=== PATIENT | female | born 1980 | race African-American/Black ===

== ENCOUNTER 2022-12-26 06:10 | Inpatient (IN) ==
[2022-12-26] MEDS ORDERED: BETADINE SOLN ONE (06:47)
[2022-12-26] MEDS ORDERED: ANCEF VIAL 1 GRAM ONE (06:51)
[2022-12-26] MEDS ORDERED: D5 1/2 NS 1,000 ML 1,000 ML IV ONE ×2 (06:55→09:46)
[2022-12-26] MEDS ORDERED: NS 100 ML IV 100 ML ONE (06:55)
[2022-12-26 07:18] VITALS: BMI 37.2
[2022-12-26] MEDS ORDERED: FENTANYL VIAL INJ 250 mcg ONE (07:22)
[2022-12-26] MEDS ORDERED: K-RIDER 10 MEQ/NS 100 ML 20 MEQ/200 ML BAG IV ONE (07:22)
[2022-12-26] MEDS ORDERED: VERSED ONE (07:22)
[2022-12-26] MEDS ORDERED: SUPRANE ONE (07:23)
[2022-12-26] MEDS ORDERED: DIPRIVAN VIAL 20 ML ONE (07:23)
[2022-12-26] MEDS ORDERED: BRIDION ONE (07:23)
[2022-12-26] MEDS ORDERED: ZOFRAN INJ 4 MG VIAL ONE (07:24)
[2022-12-26] MEDS ORDERED: ZEMURON 100 MG VIAL ONE (07:24)
[2022-12-26] MEDS ORDERED: QUELICIN (OR ANECTINE) ONE (07:24)
[2022-12-26] MEDS ORDERED: ProvayBLUE 0.5% ONE (08:26)
[2022-12-26] MEDS ORDERED: DILAUDID INJ ONE (09:06)
[2022-12-26] MEDS ORDERED: D5 1/2 NS 1,000 ML 1,000 ML IV SCH (09:41)
[2022-12-26] MEDS ORDERED: ANCEF VIAL 1 GRAM IVP ONE (09:41)
[2022-12-26] MEDS ORDERED: K-RIDER 10 MEQ/NS 100 ML 10 MEQ/100 ML BAG IV ONE (09:44)
[2022-12-26] MEDS ORDERED: DILAUDID INJ IVP PRN (09:55)
[2022-12-26] MEDS ORDERED: ZOFRAN INJ 4 MG VIAL IVP PRN (09:55)
[2022-12-26] MEDS ORDERED: REGLAN INJ 10 MG VIAL IVP PRN (09:55)
[2022-12-26] MEDS ORDERED: BENADRYL INJ 50 MG VIAL IVP PRN ×2 (09:55→10:25)
[2022-12-26] MEDS ORDERED: BARHEMSYS INJ IVP PRN (09:55)
[2022-12-26] MEDS: D5 1/2 NS 1,000 ML 1,000 ML IV SCH ×2 (10:15→18:11)
[2022-12-26] MEDS: MORPHINE SULFATE PCA 30 MG IVP PRN ×2 (11:38→17:15)
[2022-12-26] MEDS ORDERED: MAGNESIUM SULFATE 1 GRAM/100 mL PREMIX 1 G/100 ML BAG IV PRN ×2 (14:02→14:04)
[2022-12-26] MEDS ORDERED: POTASSIUM CHL 40 MEQ/NS 0.45% 500 ML IV PRN (14:04)
[2022-12-26] MEDS ORDERED: POTASSIUM CHL 60 MEQ/NS 0.45% 500 ML IV PRN (14:04)
[2022-12-26] MEDS ORDERED: K-RIDER 10 MEQ/NS 100 ML 10 MEQ/100 ML BAG IV PRN (14:04)
[2022-12-26] MEDS ORDERED: POTASSIUM CHLORIDE LIQ 20 MEQ UDC PO PRN (14:04)
[2022-12-26] MEDS ORDERED: MICRO K EXTEN CAP 10 MEQ PO PRN ×2 (14:04→23:00)
[2022-12-26] MEDS ORDERED: KLOR-CON PO PRN (14:04)
[2022-12-26] MEDS ORDERED: K-DUR TAB 20 MEQ PO PRN (14:04)
[2022-12-26] MEDS: ZOFRAN INJ 4 MG VIAL IVP PRN ×2 (18:11→23:53)
[2022-12-26] MEDS: TORADOL 30 MG VIAL IVP PRN (23:52)
[2022-12-27] MEDS: D5 1/2 NS 1,000 ML 1,000 ML IV SCH (02:12)
[2022-12-27 05:11] LABS: BASOPHILS # (AUTO) 0.1 X10^3/uL (0.0-0.1); BASOPHILS % (AUTO) 0.4 % (0.2-1.0); HEMATOCRIT 33.6 % (36.0-47.0); HEMOGLOBIN 11.2 g/dL (12.0-16.0); LYMPHOCYTES # (AUTO) 1.3 X10^3/uL (1.3-2.9); LYMPHOCYTES % (AUTO) 8.3 % (21.0-51.0); MEAN CORPUSCULAR HEMOGLOBIN 26.1 pg (27.0-34.0); MEAN CORPUSCULAR HGB CONC 33.4 g/dL (33.0-35.0); MEAN PLATELET VOLUME 8.4 fL (7.4-11.0); MONOCYTES # (AUTO) 1.1 x10^3/uL (0.3-0.8); NEUTROPHILS # (AUTO) 12.8 x10^3/uL (2.2-4.8); NEUTROPHILS % (AUTO) 84.3 % (42.0-75.0); RED CELL DISTRIBUTION WIDTH 16.7 % (11.6-16.5); WHITE BLOOD COUNT 15.2 X10^3/uL (3.6-10.0)
[2022-12-27 05:17] LABS: BLOOD UREA NITROGEN 6 mg/dL (7-18); CARBON DIOXIDE 29.4 mmol/L (21-32); CHLORIDE 99 mmol/L (98-107); COR NA(FOR HYPERGLY) 139 mmol/L (136-145); CREATININE 0.77 mg/dL (0.55-1.02); SODIUM 138 mmol/L (136-145); eGFR NON BLACK RACES > 60 (>60)
[2022-12-27] MEDS: TORADOL 30 MG VIAL IVP PRN (07:38)
[2022-12-27] MEDS: ESTRACE PO SCH (08:50)
[2022-12-27] MEDS: COZAAR PO SCH (08:50)
[2022-12-27] MEDS: COLACE CAP 100 MG PO SCH ×2 (08:51→20:06)
[2022-12-27] MEDS: ZETIA TAB 10 MG PO SCH (08:51)
[2022-12-27] MEDS ORDERED: BACTROBAN TOPICAL OINT ONE (11:30)
[2022-12-27] MEDS: PERCOCET TAB 5/325 MG PO PRN ×3 (11:31→20:06)
[2022-12-27] MEDS ORDERED: BENADRYL CAP/TAB 25 MG PO ONE (13:46)
[2022-12-27] MEDS ORDERED: BENADRYL CAP 50 MG PO ONE (13:50)
[2022-12-27] MEDS: BACTROBAN TOPICAL OINT TOP SCH ×3 (13:51→22:28)
[2022-12-27] MEDS: MOTRIN TAB 800 MG PO PRN ×2 (14:25→22:46)
[2022-12-27] MEDS ORDERED: ONDANSETRON ODT PO PRN (22:18)
[2022-12-27] MEDS ORDERED: ZOFRAN TAB 4 MG PO PRN (22:34)
[2022-12-28] MEDS: PERCOCET TAB 5/325 MG PO PRN (05:47)
[2022-12-28] MEDS: BACTROBAN TOPICAL OINT TOP SCH (05:48)
[2022-12-28] MEDS: COZAAR PO SCH (08:38)
[2022-12-28] MEDS: ESTRACE PO SCH (08:38)
[2022-12-28] MEDS: ZETIA TAB 10 MG PO SCH (08:38)
[2022-12-28] MEDS: COLACE CAP 100 MG PO SCH (08:38)
[2022-12-28] MEDS: MOTRIN TAB 800 MG PO PRN (08:38)
[2022-12-28 09:54] VITALS: BP 162/87
== END 2022-12-28 10:20 | disposition home or self-care (01) | DRG 743 ==
LOC: MED/SURG 06:10
PROVIDERS: ADMIT Specialist; ATTEND Specialist
DX: E87.6 Hypokalemia; N92.5 Other specified irregular menstruation; D25.2 Subserosal leiomyoma of uterus; I10 Essential (primary) hypertension

== ENCOUNTER 2024-12-02 16:25 | Observation (INO) ==
[2024-12-02 16:55] LABS: BASOPHILS # (AUTO) 0.1 X10^3/uL (0.0-0.1); BASOPHILS % (AUTO) 1.2 % (0.2-1.0); EOSINOPHILS # (AUTO) 0.2 x10^3/uL (0.0-0.2); EOSINOPHILS % (AUTO) 1.7 % (0.9-2.9); HEMATOCRIT 38.8 % (36.0-47.0); HEMOGLOBIN 13.4 g/dL (12.0-16.0); LYMPHOCYTES # (AUTO) 2.8 X10^3/uL (1.3-2.9); LYMPHOCYTES % (AUTO) 30.4 % (21.0-51.0); MEAN CORPUSCULAR HGB CONC 34.4 g/dL (33.0-35.0); MEAN CORPUSCULAR VOLUME 87.3 fL (80.0-100.0); MEAN PLATELET VOLUME 8.1 fL (7.4-11.0); MONOCYTES # (AUTO) 0.6 x10^3/uL (0.3-0.8); MONOCYTES % (AUTO) 6.6 % (0.0-13.0); NEUTROPHILS # (AUTO) 5.5 x10^3/uL (2.2-4.8); NEUTROPHILS % (AUTO) 60.1 % (42.0-75.0); PLATELET COUNT 422 X10^3/uL (150.0-450.0); RED BLOOD COUNT 4.45 X10^6/uL (3.5-5.4); RED CELL DISTRIBUTION WIDTH 13.2 % (11.6-16.5); WHITE BLOOD COUNT 9.2 X10^3/uL (3.6-10.0)
--- NOTE | 2024-12-02 16:56 | EKG ---
Test Reason : er1 Blood Pressure : */* mmHG Vent. Rate : 113 BPM Atrial Rate : 113 BPM P-R Int : 126 ms QRS Dur : 78 ms QT Int : 298 ms P-R-T Axes : 49 13 10 degrees QTc Int : 408 ms Sinus tachycardia Possible Left atrial enlargement Minimal voltage criteria for LVH, may be normal variant ( R in aVL ) Borderline ECG When compared with ECG of 24-DEC-2022 14:50, No significant change was found Confirmed by Pro Kerns MD ([id number]) on 12/02/2024 6:23:29 PM Referred By: Confirmed By: Pro Kerns MD
[2024-12-02 17:06] LABS: ALANINE AMINOTRANSFERASE 17 Units/L (12-78); ALBUMIN 3.3 g/dL (3.4-5.0); ALKALINE PHOSPHATASE 75 Units/L (46-116); ASPARTATE AMINO TRANSFERASE 12 Units/L (15-37); BLOOD UREA NITROGEN 14 mg/dL (7-18); CALCIUM 8.7 mg/dL (8.5-10.1); CARBON DIOXIDE 27.3 mmol/L (21-32); CHLORIDE 104 mmol/L (98-107); COR CA(FOR HYPOALB) 9.3 mg/dL (8.5-10.1); CREATININE 1.13 mg/dL (0.55-1.02); GLUCOSE 106 mg/dL (65-99); POTASSIUM 4.2 mmol/L (3.5-5.1); SODIUM 139 mmol/L (136-145); TOTAL PROTEIN 7.4 g/dL (6.4-8.2); eGFR NON BLACK RACES 56 (>60)
[2024-12-02] MEDS ORDERED: OMNIPAQUE 350 mg/mL 100 mL BTL 100 ML ONE (17:08)
[2024-12-02 17:18] LABS: BILIRUBIN,URINE NEGATIVE (NEGATIVE); BLOOD/HEMOGLOBIN,URINE NEGATIVE (NEGATIVE); GLUCOSE, URINE NEGATIVE (NEGATIVE); KETONES,URINE NEGATIVE (NEGATIVE); LEUKOCYTE ESTERASE ,URINE NEGATIVE (NEGATIVE); NITRITES,URINE NEGATIVE (NEGATIVE); PROTEIN,URINE NEGATIVE (NEGATIVE); UROBILINOGEN,URINE NORMAL (NORMAL)
[2024-12-02 17:20] LABS: APPEARANCE,URINE CLEAR (CLEAR); COLOR,URINE STRAW (YELLOW)
--- NOTE | 2024-12-02 17:36 | DR.SOBA ---
HPI Time Seen Time Seen by Provider: 12/02/24 17:34 Primary Care Physician Primary Care Physician: griselda HPI Comment HPI Comment: Patient with worsening shortness of breath and dyspnea on exertion over the last 2 weeks. Patient states she is feeling some pressure on her chest. Patient states she has tested herself for COVID and flu and was negati ve. Patient states when she was showering she was short of breath so she sat on the ground and felt like she had a small period where there she passed out or fell asleep. She did not fall or injure herself. Complaints Chief Complaint:: for 2 weeks increasing shortness of breath tiff with exertion. has pressure to the chest like something is on it. self testing of viral illness with swabs have been negative. she was noted to be experiencing severe shortness of breath when reporting for work. she had marked difficulty when walking and trying to talk. describes what she described as a syncope episode while in the shower where she had to getup from the floor. COVID-19 Coronavirus risk:travel/contact w/high risk person: No Has patient experienced Coronavirus symptoms: Yes Coronavirus symptoms experienced: Coughing and Shortness of Breath Source History Provided: Patient Mode of Arrival Mode of Arrival: Ambulatory Timing Onset of Chief Complaint: 11/18/24 PMH PMH Past Medical History: Yes Past Medical History: Dyslipidemia and Hypertension Past Surgical History: Yes Surgical History: and Hysterectomy Family History History of Family Medical Conditions: Yes Family Medical History: Diabetes Mellitus and Hypertension Family Medical History Comment: stroke Social History Alcohol Use: None Do you use any recreational Drugs:: No Lives With: Family Lives Where: Home Travel Risk Coronavirus risk:travel/contact w/high risk person: No Has patient experienced Coronavirus symptoms: Yes Coronavirus symptoms experienced: Coughing and Shortness of Breath Infectious screening In the last 2 months have you had wt loss of >10#?: NO Have you had fever, night sweats or hemotysis?: No Have you traveled outside the country in the last 6 months?: No Isolation: Standard ROS Review of Systems Constitutional: No Symptoms Reported Eyes: No Symptoms Reported ENTM: No Symptoms Reported Respiratoy: Short of Breath; negative Orthopnea Cardiovascular: See HPI, Chest Pain, Syncope and Other (Dyspnea on exertion) Gastrointestinal/Abdominal: No Symptoms Reported Genitourinary: No Symptoms Reported Neurological: No Symptoms Reported Musculoskeletal: No Symptoms Reported Integumentary: No Symptoms Reported Hematologic/Lymphatic: No Symptoms Reported Endocrine: No Symptoms Reported Psychiatric: No Symptoms Reported All Other Systems: Reviewed and Negative PE Vital Signs Vitals: Vital Signs Temperature 98.1 F Pulse Rate 95 Pulse Rate 95 Pulse Rate 95 Pulse Rate 94 Pulse Rate 98 Pulse Rate 99 Pulse Rate 102 Pulse Rate 99 Pulse Rate 102 Pulse Rate 99 Pulse Rate 100 Pulse Rate 105 Pulse Rate 100 Pulse Rate 109 Pulse Rate 96 Pulse Rate 97 Pulse Rate 100 Pulse Rate 109 Pulse Rate 113 Pulse Rate 106 Pulse Rate 144 Respiratory Rate 17 Respiratory Rate 25 Respiratory Rate 18 Respiratory Rate 19 Respiratory Rate 17 Respiratory Rate 22 Respiratory Rate 28 Respiratory Rate 31 Respiratory Rate 25 Respiratory Rate 24 Respiratory Rate 29 Respiratory Rate 29 Respiratory Rate 29 Respiratory Rate 16 Respiratory Rate 25 Respiratory Rate 22 Respiratory Rate 18 Respiratory Rate 29 Respiratory Rate 26 Respiratory Rate 40 Blood Pressure 140/86 Blood Pressure 129/79 Blood Pressure 133/82 Blood Pressure 138/86 Blood Pressure 138/80 Blood Pressure 138/80 Blood Pressure 140/91 Blood Pressure 140/91 Blood Pressure 134/89 Blood Pressure 158/77 Blood Pressure 136/82 Blood Pressure 121/79 Blood Pressure 142/82 O2 Sat by Pulse Oximetry 100 O2 Sat by Pulse Oximetry 100 O2 Sat by Pulse Oximetry 100 O2 Sat by Pulse Oximetry 100 O2 Sat by Pulse Oximetry 100 O2 Sat by Pulse Oximetry 100 O2 Sat by Pulse Oximetry 99 O2 Sat by Pulse Oximetry 100 O2 Sat by Pulse Oximetry 100 O2 Sat by Pulse Oximetry 100 O2 Sat by Pulse Oximetry 100 O2 Sat by Pulse Oximetry 99 O2 Sat by Pulse Oximetry 100 O2 Sat by Pulse Oximetry 98 O2 Sat by Pulse Oximetry 98 O2 Sat by Pulse Oximetry 100 O2 Sat by Pulse Oximetry 100 O2 Sat by Pulse Oximetry 100 O2 Sat by Pulse Oximetry 97 O2 Sat by Pulse Oximetry 100 General Limitations: No Limitations General Appearance: Alert and In No Apparent Distress Head Head Exam: Normal Inspection Eyes Eye exam: Normal Appearance ENT ENT Exam: Normal Exam Neck Neck Exam: Normal Inspection Chest Chest Inspection: Normal Inspection Respiratory Respiratory Exam: Normal Lung Sounds Bilat Respiratory Exam: Bilateral: Clear to Auscultation Cardiovascular Cardiovascular Exam: Regular Rate and Normal Rhythm Abdominal Exam Abdominal Exam: Normal Inspection, Normal Bowel Sounds and Soft Extremities Extremities Exam: Normal Inspection Back Back Exam: Normal Inspection Neurologic Neurological Exam: Alert and Oriented X3 Psychiatric Psychiatric Exam: Normal Affect and Normal Mood Skin Skin Exam: Warm, Dry, Intact and Normal Color Other Exam Other Exam: Patient oxygen saturation dropped to high 70s during ambulation. COURSE Treatment Treatment: Discussed results with patient. Suspect pulmonary hypertension is part of the reason for her symptoms. Consultation Called: 20:56 Consultation Comments: Discussed case with Dr. Broderick. He is agreeable to admi ssion for echo and further workup. [facility] Labs Reviewed 12/02/24 16:40 12/02/24 16:40 Laboratory: WBC 9.2 X10^3/uL (3.6-10.0) 12/02/24 16:40 RBC 4.45 X10^6/uL (3.5-5.4) 12/02/24 16:40 Hgb 13.4 g/dL (12.0-16.0) 12/02/24 16:40 Hct 38.8 % (36.0-47.0) 12/02/24 16:40 MCV 87.3 fL (80.0-100.0) 12/02/24 16:40 MCH 30.0 pg (27.0-34.0) 12/02/24 16:40 MCHC 34.4 g/dL (33.0-35.0) 12/02/24 16:40 RDW 13.2 % (11.6-16.5) 12/02/24 16:40 Plt Count 422 X10^3/uL (150.0-450.0) 12/02/24 16:40 MPV 8.1 fL (7.4-11.0) 12/02/24 16:40 Neut % (Auto) 60.1 % (42.0-75.0) 12/02/24 16:40 Lymph % (Auto) 30.4 % (21.0-51.0) 12/02/24 16:40 [place] % (Auto) 6.6 % (0.0-13.0) 12/02/24 16:40 Eos % (Auto) 1.7 % (0.9-2.9) 12/02/24 16:40 Baso % (Auto) 1.2 % (0.2-1.0) H 12/02/24 16:40 Neut # (Auto) 5.5 x10^3/uL (2.2-4.8) H 12/02/24 16:40 Lymph # (Auto) 2.8 X10^3/uL (1.3-2.9) 12/02/24 16:40 [place] # (Auto) 0.6 x10^3/uL (0.3-0.8) 12/02/24 16:40 Eos # (Auto) 0.2 x10^3/uL (0.0-0.2) 12/02/24 16:40 Baso # (Auto) 0.1 X10^3/uL (0.0-0.1) 12/02/24 16:40 Absolute Nucleated RBC 0.1 /100WBC 12/02/24 16:40 D-Dimer 0.27 ug/ml (0.0-0.57) 12/02/24 16:40 Sodium 139 mmol/L (136-145) 12/02/24 16:40 Corrected Sodium TNP 12/02/24 16:40 Potassium 4.2 mmol/L (3.5-5.1) 12/02/24 16:40 Chloride 104 mmol/L (98-107) 12/02/24 16:40 Carbon Dioxide 27.3 mmol/L (21-32) 12/02/24 16:40 BUN 14 mg/dL (7-18) 12/02/24 16:40 Creatinine 1.13 mg/dL (0.55-1.02) H 12/02/24 16:40 Est GFR (MDRD) Af Amer > 60 (>60) 12/02/24 16:40 Est GFR (MDRD) Non-Af 56 (>60) L 12/02/24 16:40 Glucose 106 mg/dL (65-99) H 12/02/24 16:40 Calcium 8.7 mg/dL (8.5-10.1) 12/02/24 16:40 Corrected Calcium 9.3 mg/dL (8.5-10.1) 12/02/24 16:40 Total Bilirubin 0.30 mg/dL (0.2-1.0) 12/02/24 16:40 AST 12 Units/L (15-37) L 12/02/24 16:40 ALT 17 Units/L (12-78) 12/02/24 16:40 Alkaline Phosphatase 75 Units/L (46-116) 12/02/24 16:40 Troponin I High Sens 21.8 ng/L (4.0-60.0) 12/02/24 19:51 B-Natriuretic Peptide 9.5 pg/mL (0-79) 12/02/24 16:40 Total Protein 7.4 g/dL (6.4-8.2) 12/02/24 16:40 Albumin 3.3 g/dL (3.4-5.0) L 12/02/24 16:40 Globulin 4.1 g/dL (2.5-4.5) 12/02/24 16:40 Albumin/Globulin Ratio 0.8 Ratio (1.1-2.1) L 12/02/24 16:40 TSH 3rd Generation 1.649 uIU/mL (0.358-3.74) 12/02/24 16:40 Specimen Type Clean catch urine 12/02/24 17:07 Urine Color Straw (YELLOW) 12/02/24 17:07 Urine Appearance Clear (CLEAR) 12/02/24 17:07 Urine pH 7.0 (5.0 - 8.0) 12/02/24 17:07 Ur Specific [place] 1.010 (1.000-1.030) 12/02/24 17:07 Urine Protein Negative (NEGATIVE) 12/02/24 17:07 Urine Glucose (UA) Negative (NEGATIVE) 12/02/24 17:07 Urine Ketones Negative (NEGATIVE) 12/02/24 17:07 Urine Blood Negative (NEGATIVE) 12/02/24 17:07 Urine Nitrite Negative (NEGATIVE) 12/02/24 17:07 Urine Bilirubin Negative (NEGATIVE) 12/02/24 17:07 Urine Urobilinogen Normal (NORMAL) 12/02/24 17:07 Ur Leukocyte Esterase Negative (NEGATIVE) 12/02/24 17:07 Opioid Opioid Risk Tool Age (Izaiah box if 16-45): Yes History of Preadolescent Sexual Abuse: No Total: 1 Total Score Risk Category: Low Risk Copyright: Rayo GARCIA predicting aberrant behaviors Discharge Plan Diagnosis Discharge Problem: RUSSELL (dyspnea on exertion), Chest pain, Syncope, Pulmonary hypertension Discharge Plan Patient Disposition: 09 ADMITTED INPATIENT Condition: Stable Prescriptions: No Action ezetimibe-simvastatin 10-10 mg tablet 1 tab PO QHS 30 Days Qty: 30 3RF losartan 25 mg tablet 25 mg PO QDAY 30 Days Qty: 30 3RF potassium chloride 10 mEq capsule, extended release 20 meq PO BID 30 Days Qty: 120 2RF spironolactone 25 mg tablet 25 mg PO QDAY 30 Days Qty: 30 3RF Health Concerns: Post Hospitalization: new medications and changes needed to prevent readmission or further decline. Pt educated and given instructions on all concerns. Plan of Treatment: Continue with present treatment and follow up plan. Pt is to keep follow up appointment as instructed and take medications as ordered. Orders to Discharge Patient Discharge Orders: Transfer (Routine); Ordered 12/02/24 Ordered By: Rell Galan Follow ups/Referrals Follow ups/Referrals: [facility],None [STAFF PHYSICIAN] - 3 days Instructions Stand Alone Forms: Find Help Web Site, Post Hospital Follow Up Care
--- NOTE | 2024-12-02 17:52 | CT ---
EXAM: CT ABDOMEN AND PELVIS WITH INTRAVENOUS CONTRAST HISTORY: 2 weeks of increasing shortness of breath, especially with exertion. Chest pressure. TECHNIQUE: Spiral axial CT images are obtained through the abdomen and pelvis without the administrat ion of oral contrast and with administration of intravenous contrast. Additional coronal and sagittal reformatted images are reconstructed. COMPARISON: None available. FINDINGS: GASTROINTESTINAL TRACT: There is no evidence for bowel herniation, bowel obstruction, colitis or dive rticulitis. A normal-appearing appendix is seen. GENITOURINARY SYSTEM: The kidneys are unremarkable. There is no ureteral calculus or stigmata of obst ructive uropathy. The urinary bladder is grossly unremarkable for a non-dedicated exam. CT ABDOMEN: The liver, spleen, pancreas, adrenal glands, gallbladder, aorta, and inferior vena cava a re within normal limits for a CT scan. There is no intra-abdominal or retroperitoneal lymphadenopath y, free fluid, or free air seen. No abdominal herniation is noted. CT PELVIS: The patient is status post hysterectomy. A surgical clip is seen in the distal right depe ndent pelvis (axial image 69). No pelvic sidewall or inguinal lymphadenopathy is seen. No inguinal herniation is noted. No free fluid or free air is seen. BONES AND JOINTS: The visualized bony structures are within normal limits. LUNG BASES: The lung bases are clear. IMPRESSION: 1. No gross acute abnormality seen. 2. No evidence for pyelonephritis, renal stone disease or obstructive uropathy. 3. No evidence for acute appendicitis, bowel herniation/obstruction, colitis or diverticulitis seen. 4. No free fluid, free air, mass lesions, or lymphadenopathy seen. THIS IS AN ELECTRONICALLY VERIFIED FINAL REPORT 12/02/2024 5:48 PM - Electronically signed by Brittany Avery MD
--- NOTE | 2024-12-02 17:59 | CT ---
EXAMINATION: CTA, CHEST HISTORY: 2 weeks increasing shortness of breath tiff with exertion. has pressure to the chest like something is on it.; COMPARISON: None. TECHNIQUE: Contiguous axial CT images of the thorax following intravenous contrast. Images reviewed in the axia l imaging plane with post processing thick slab MIP/3D volume images at a workstation.The above CT sc an was done with automated exposure control and the mA and kV was adjusted to obtain quality images a ccording to patient size. FINDINGS: The lungs are expanded. No focal pulmonary infiltrates or pleural fluid collections. The central ai rways are patent. There is enlargement of the main pulmonary outflow trunk measuring 3.7 cm short axis dimension suspic ious for pulmonary arterial hypertension. No evidence thrombus within the pulmonary arteries. No th oracic aortic aneurysm or dissection. Normal enhancement of the heart. No pericardial effusion. No mediastinal or hilar adenopathy. Mild thoracic spondylosis. IMPRESSION: Enlarged main pulmonary outflow trunk suspicious for pulmonary arterial hypertension. No evidence of thrombus within the pulmonary arteries. No focal pulmonary infiltrates. THIS IS AN ELECTRONICALLY VERIFIED FINAL REPORT 12/02/2024 5:56 PM - Electronically signed by Alina Hernandez MD
[2024-12-02] MEDS ORDERED: ZOFRAN INJ 4 MG VIAL ONE (19:02)
[2024-12-02] MEDS: NORVASC TAB 5 MG PO ONE (19:06)
[2024-12-02] MEDS: ZOFRAN INJ 4 MG VIAL IVP ONE (19:07)
--- NOTE | 2024-12-02 19:53 | CT ---
EXAMINATION:BRAIN W/O CONHISTORY:2 weeks increasing shortness of breath tiff with exertion. has pressure to the chest like something is on it.; PT HAD PREVIOUS IV CONTRASTCOMPARISON:None.TECHNIQUE:Contig uous noncontrast axial CT images of the brain. Images reviewed in the axial imaging plane with reformatted sagittal and coronal images.The above CT scan was done with automated exposure control and the mA and kV was adjusted to obtain quality images according to patient size.FINDINGS:No evidence of acute intracranial hemorrhage, mass effect, or midline shift. Normal blunt-white matter differentiation. Ventricles normal size and shape. The calvarium appears intact.IMPRESSION:No acute intracranial process seen.THIS IS AN ELECTRONICALLY VERIFIED FINAL REPORT12/02/2024 7:41 PM - Electronically signed by Alina Hernandez MD
--- NOTE | 2024-12-02 20:22 | RAD ---
EXAM: CHEST, 1 VIEW HISTORY: 2 weeks increasing shortness of breath tiff with exertion. has pressure to the chest like something is on it.; COMPARISON: Chest x-ray dated December 24, 2022 FINDINGS: The trachea is midline. The cardiac silhouette is unremarkable. Central peribronchial wall thickenin g is seen which would imply central bronchitis. The remaining lungs are clear without focal infiltrate or effusion. No pneumothorax is identified. There is no evidence for CHF or pulmonary edema. The bony thorax is unremarkable. IMPRESSION: Chest findings suggesting central bronchitis/small airways disease without evidence for lobar infiltr ates or effusions. THIS IS AN ELECTRONICALLY VERIFIED FINAL REPORT 12/02/2024 8:19 PM - Electronically signed by Preston Mason MD
[2024-12-02] MEDS ORDERED: CONSULT PHARMACY - POTASSIUM & MAGNESIUM XX SCH (22:03)
[2024-12-02 22:22] VITALS: BMI 36.8
--- NOTE | 2024-12-02 22:22 | EKG ---
Test Reason : chest pain Blood Pressure : */* mmHG Vent. Rate : 99 BPM Atrial Rate : 99 BPM P-R Int : 130 ms QRS Dur : 74 ms QT Int : 336 ms P-R-T Axes : 40 14 8 degrees QTc Int : 431 ms Normal sinus rhythm Minimal voltage criteria for LVH, may be normal variant ( R in aVL ) Septal infarct , age undetermined T wave abnormality, consider anterior ischemia Abnormal ECG When compared with ECG of 02-DEC-2024 16:33, Septal infarct is now present Confirmed by Pro Kerns MD ([id number]) on 12/03/2024 7:12:32 AM Referred By: Confirmed By: Pro Kerns MD
--- NOTE | 2024-12-03 03:25 | EKG ---
Test Reason : chest pain Blood Pressure : */* mmHG Vent. Rate : 87 BPM Atrial Rate : 87 BPM P-R Int : 144 ms QRS Dur : 76 ms QT Int : 342 ms P-R-T Axes : 49 17 12 degrees QTc Int : 411 ms Normal sinus rhythm T wave abnormality, consider anterior ischemia Abnormal ECG When compared with ECG of 02-DEC-2024 22:00, (Unconfirmed) Criteria for Septal infarct are no longer present Confirmed by Pro Kerns MD ([id number]) on 12/03/2024 7:12:26 AM Referred By: Confirmed By: Pro Kerns MD
[2024-12-03 06:23] LABS: ALANINE AMINOTRANSFERASE 18 Units/L (12-78); ALBUMIN 3.3 g/dL (3.4-5.0); ALKALINE PHOSPHATASE 70 Units/L (46-116); ASPARTATE AMINO TRANSFERASE 14 Units/L (15-37); BLOOD UREA NITROGEN 16 mg/dL (7-18); CARBON DIOXIDE 27.4 mmol/L (21-32); CHLORIDE 105 mmol/L (98-107); CHOL/HDL RATIO 2.7 (0.0-5.0); CHOLESTEROL 245 mg/dL (0-200); COR CA(FOR HYPOALB) 9.6 mg/dL (8.5-10.1); CREATININE 1.05 mg/dL (0.55-1.02); GLUCOSE 96 mg/dL (65-99); HDL CHOLESTEROL 92 mg/dL (40-60); MAGNESIUM 2.1 mg/dL (2.0-2.9); POTASSIUM 4.1 mmol/L (3.5-5.1); SODIUM 141 mmol/L (136-145); TOTAL PROTEIN 7.3 g/dL (6.4-8.2); TRIGLYCERIDES 118 mg/dL (0-150); eGFR NON BLACK RACES > 60 (>60)
[2024-12-03 06:31] LABS: BASOPHILS # (AUTO) 0.1 X10^3/uL (0.0-0.1); BASOPHILS % (AUTO) 0.9 % (0.2-1.0); EOSINOPHILS # (AUTO) 0.2 x10^3/uL (0.0-0.2); EOSINOPHILS % (AUTO) 2.3 % (0.9-2.9); HEMATOCRIT 39.8 % (36.0-47.0); HEMOGLOBIN 13.2 g/dL (12.0-16.0); LYMPHOCYTES # (AUTO) 2.9 X10^3/uL (1.3-2.9); LYMPHOCYTES % (AUTO) 32.7 % (21.0-51.0); MEAN CORPUSCULAR HGB CONC 33.1 g/dL (33.0-35.0); MEAN CORPUSCULAR VOLUME 87.7 fL (80.0-100.0); MEAN PLATELET VOLUME 8.4 fL (7.4-11.0); MONOCYTES # (AUTO) 0.7 x10^3/uL (0.3-0.8); MONOCYTES % (AUTO) 7.8 % (0.0-13.0); NEUTROPHILS % (AUTO) 56.3 % (42.0-75.0); PLATELET COUNT 369 X10^3/uL (150.0-450.0); RED BLOOD COUNT 4.54 X10^6/uL (3.5-5.4); RED CELL DISTRIBUTION WIDTH 13.3 % (11.6-16.5); WHITE BLOOD COUNT 8.8 X10^3/uL (3.6-10.0)
[2024-12-03] MEDS ORDERED: PATIENT'S HOME MEDICATION (Potassium Chloride 10 mEq capsule, extended release) PO SCH (09:00)
[2024-12-03] MEDS ORDERED: PATIENT'S HOME MEDICATION (Losartan 25 mg tablet) PO SCH (09:00)
[2024-12-03] MEDS: KLOR-CON 10 MEQ TAB PO SCH (09:22)
[2024-12-03] MEDS: ALDACTONE TAB 25 MG PO SCH (09:22)
[2024-12-03] MEDS: NORVASC TAB 5 MG PO SCH (09:23)
[2024-12-03] MEDS: COZAAR PO SCH (09:23)
[2024-12-03] MEDS: SOLU-Medrol 40 MG VIAL IVP SCH (09:25)
[2024-12-03] MEDS: ESTRACE PO SCH (10:29)
[2024-12-03] MEDS: SOLU-Medrol 40 MG VIAL ONE (12:14)
[2024-12-03] MEDS: TYLENOL 325 MG TAB PO PRN (16:23)
[2024-12-03] MEDS: TYLENOL 325 MG TAB PO ONE (16:24)
[2024-12-03] MEDS: DUONEB 0.5 MG/3 MG (3 mL) NEB SCH (16:52)
[2024-12-03] MEDS: PULMICORT NEB TX 0.5 MG NEB SCH (16:56)
[2024-12-03 16:57] VITALS: O2SAT 98
--- NOTE | 2024-12-03 17:20 | EKG ---
Test Reason : tachycardia Blood Pressure : */* mmHG Vent. Rate : 127 BPM Atrial Rate : 127 BPM P-R Int : 124 ms QRS Dur : 76 ms QT Int : 298 ms P-R-T Axes : 61 30 34 degrees QTc Int : 433 ms Sinus tachycardia Right atrial enlargement Nonspecific ST abnormality Abnormal ECG When compared with ECG of 03-DEC-2024 03:07, T wave inversion no longer evident in Anterior leads T wave amplitude has decreased in Lateral leads Confirmed by Pro Kerns MD ([id number]) on 12/03/2024 6:40:26 PM Referred By: Confirmed By: Pro Kerns MD
[2024-12-03 17:24] VITALS: BP 135/76; PULSE 111; TEMP 97.5
[2024-12-03 17:43] VITALS: RESP 21
[2024-12-03] MEDS: NORCO 5/325 MG TAB PO PRN (17:43)
[2024-12-03] MEDS ORDERED: ZOCOR TAB 10 MG PO SCH (21:00)
[2024-12-03] MEDS ORDERED: ZETIA TAB 10 MG PO SCH (21:00)
--- NOTE | 2024-12-05 18:11 | DR.SSS ---
SHORT STAY SUMMARY Admission Date Date of Admission: 12/02/24 Discharge Date Discharge Date: 12/03/24 Discharge Diagnoses Discharge Diagnoses: pulmonary hypertension Chief Complaint Chief Complaint: shortness of breath History of Present Illness History of Present Illness: Patient is a 44-year-old female presenting with shortness of breath that has been getting worse for the past week. She reports having some chest pressure. She did test herself for COVID and flu that was negative. She does report having some cough. Denies fevers or chills. Labs/imaging: WBC 8.8, hemoglobin 13.2, platelets 369, sodium 141, potassium 4.1, creatinine 1.05, glucose 96, troponin negative x 3, BNP 9.5, D-dimer ne gative. Chest x-ray revealed bronchitis. CTA of the chest also revealed a pulmonary artery hypertension. CT of the brain negative. CT abdomen pelvis negative. Patient was also started on Norvasc and steroids. Bronchodilators. She reports feeling improvement in her symptoms especially after starting on Norvasc. Echo was not able to be approved by insurance in time. She is otherwise in stable condition. Will obtain echo outpatient. Will also put a referral in for cardiology due to the pulmonary hypertension. Patient discharged in stable condition. Instructed follow-up with PCP and cardiology in 1 week. Past Medical History Past Medical History: Dyslipidemia and Hypertension Past Surgical History Surgical History: and Hysterectomy Allergies Allergies Allergy/AdvReac Type Severity Reaction Status Date / Time No Known Drug Allergies Allergy Unknown Verified 12/02/24 16:32 Medications Home Medications: No Known Drug Allergies Allergy (Unknown, Verified 12/02/24 16:32) Family History Family Medical History: Diabetes Mellitus and Hypertension Social History Alcohol Use: None Drug Use: None Review of Systems Constitutional: No Symptoms Reported Eyes: No Symptoms Reported ENT: No Symptoms Reported Respiratory: Cough and Shortness of Breath Cardiovascular: No Symptoms Reported Gastrointestinal: No Symptoms Reported Genitourinary: No Symptoms Reported Musculoskeletal: No Symptoms Reported Skin: No Symptoms Reported Neurological: No Symptoms Reported Physical Exam Vital Signs: Last Vital Signs Temp 97.7 F 12/03/24 08:00 Pulse 95 H 12/03/24 08:00 Resp 18 12/03/24 08:00 BP 129/69 12/03/24 08:00 Pulse Ox 99 12/03/24 08:00 O2 Del Method Room Air 12/03/24 07:49 O2 Flow Rate 2 12/02/24 22:23 FiO2 21 12/03/24 07:49 Oriented: Normal Eyes: Normal Nose: Normal Throat: Normal Respiratory: Clear Throughout Cardiovascular: Normal : Normal Auscultation: Bowel Sounds: Normal Palpation: Normal Tenderness: Normal Skin: Normal Musculoskeletal: Normal Mood Description: Calm Affect: Normal Speech Pattern: Clear Labs Labs: Laboratory Last Values WBC 8.8 X10^3/uL (3.6-10.0) 12/03/24 05:30 RBC 4.54 X10^6/uL (3.5-5.4) 12/03/24 05:30 Hgb 13.2 g/dL (12.0-16.0) 12/03/24 05:30 Hct 39.8 % (36.0-47.0) 12/03/24 05:30 MCV 87.7 fL (80.0-100.0) 12/03/24 05:30 MCH 29.0 pg (27.0-34.0) 12/03/24 05:30 MCHC 33.1 g/dL (33.0-35.0) 12/03/24 05:30 RDW 13.3 % (11.6-16.5) 12/03/24 05:30 Plt Count 369 X10^3/uL (150.0-450.0) 12/03/24 05:30 MPV 8.4 fL (7.4-11.0) 12/03/24 05:30 Neut % (Auto) 56.3 % (42.0-75.0) 12/03/24 05:30 Lymph % (Auto) 32.7 % (21.0-51.0) 12/03/24 05:30 [place] % (Auto) 7.8 % (0.0-13.0) 12/03/24 05:30 Eos % (Auto) 2.3 % (0.9-2.9) 12/03/24 05:30 Baso % (Auto) 0.9 % (0.2-1.0) 12/03/24 05:30 Neut # (Auto) 5.0 x10^3/uL (2.2-4.8) H 12/03/24 05:30 Lymph # (Auto) 2.9 X10^3/uL (1.3-2.9) 12/03/24 05:30 [place] # (Auto) 0.7 x10^3/uL (0.3-0.8) 12/03/24 05:30 Eos # (Auto) 0.2 x10^3/uL (0.0-0.2) 12/03/24 05:30 Baso # (Auto) 0.1 X10^3/uL (0.0-0.1) 12/03/24 05:30 Absolute Nucleated RBC 0.0 /100WBC 12/03/24 05:30 D-Dimer 0.27 ug/ml (0.0-0.57) 12/02/24 16:40 Sodium 141 mmol/L (136-145) 12/03/24 05:30 Corrected Sodium TNP 12/03/24 05:30 Potassium 4.1 mmol/L (3.5-5.1) 12/03/24 05:30 Chloride 105 mmol/L (98-107) 12/03/24 05:30 Carbon Dioxide 27.4 mmol/L (21-32) 12/03/24 05:30 BUN 16 mg/dL (7-18) 12/03/24 05:30 Creatinine 1.05 mg/dL (0.55-1.02) H 12/03/24 05:30 Est GFR (MDRD) Af Amer > 60 (>60) 12/03/24 05:30 Est GFR (MDRD) Non-Af > 60 (>60) 12/03/24 05:30 Glucose 96 mg/dL (65-99) 12/03/24 05:30 POC Glucose (mg/dL) 94 mg/dL (65-99) 12/03/24 05:37 Calcium 9.0 mg/dL (8.5-10.1) 12/03/24 05:30 Corrected Calcium 9.6 mg/dL (8.5-10.1) 12/03/24 05:30 Magnesium 2.1 mg/dL (2.0-2.9) 12/03/24 05:30 Total Bilirubin 0.20 mg/dL (0.2-1.0) 12/03/24 05:30 AST 14 Units/L (15-37) L 12/03/24 05:30 ALT 18 Units/L (12-78) 12/03/24 05:30 Alkaline Phosphatase 70 Units/L (46-116) 12/03/24 05:30 Creatine Kinase 147 Units/L (26-192) 12/02/24 22:15 Troponin I High Sens 19.6 ng/L (4.0-60.0) 12/03/24 05:30 B-Natriuretic Peptide 9.5 pg/mL (0-79) 12/02/24 16:40 Total Protein 7.3 g/dL (6.4-8.2) 12/03/24 05:30 Albumin 3.3 g/dL (3.4-5.0) L 12/03/24 05:30 Globulin 4.0 g/dL (2.5-4.5) 12/03/24 05:30 Albumin/Globulin Ratio 0.8 Ratio (1.1-2.1) L 12/03/24 05:30 Triglycerides 118 mg/dL (0-150) 12/03/24 05:30 Cholesterol 245 mg/dL (0-200) H 12/03/24 05:30 LDL Cholesterol, Calc 129 mg/dL (0-100) H 12/03/24 05:30 HDL Cholesterol 92 mg/dL (40-60) H 12/03/24 05:30 Cholesterol/HDL Ratio 2.7 (0.0-5.0) 12/03/24 05:30 TSH 3rd Generation 1.649 uIU/mL (0.358-3.74) 12/02/24 16:40 Specimen Type Clean catch urine 12/02/24 17:07 Urine Color Straw (YELLOW) 12/02/24 17:07 Urine Appearance Clear (CLEAR) 12/02/24 17:07 Urine pH 7.0 (5.0 - 8.0) 12/02/24 17:07 Ur Specific [place] 1.010 (1.000-1.030) 12/02/24 17:07 Urine Protein Negative (NEGATIVE) 12/02/24 17:07 Urine Glucose (UA) Negative (NEGATIVE) 12/02/24 17:07 Urine Ketones Negative (NEGATIVE) 12/02/24 17:07 Urine Blood Negative (NEGATIVE) 12/02/24 17:07 Urine Nitrite Negative (NEGATIVE) 12/02/24 17:07 Urine Bilirubin Negative (NEGATIVE) 12/02/24 17:07 Urine Urobilinogen Normal (NORMAL) 12/02/24 17:07 Ur Leukocyte Esterase Negative (NEGATIVE) 12/02/24 17:07 Assessment/Plan (1) Chest pain: (2) RUSSELL (dyspnea on exertion): (3) Pulmonary hypertension: Hospital Course Hospital Course: Patient is a 44-year-old female presenting with shortness of breath that has been getting worse for the past week. She reports having some chest pressure. She did test herself for COVID and flu that was negative. She does report having some cough. Denies fevers or chills. Labs/imaging: WBC 8.8, hemoglobin 13.2, platelets 369, sodium 141, potassium 4.1, creatinine 1.05, glucose 96, troponin negative x 3, BNP 9.5, D-dimer negative. Chest x-ray revealed bronchitis. CTA of the chest also revealed a pulmonary artery hypertension. CT of the brain negative. CT abdomen pelvis negative. Patient was also started on Norvasc and steroids. Bronchodilators. She reports feeling improvement in her symptoms especially after starting on Norvasc. Echo was not able to be approved by insurance in time. She is otherwise in stable condition. Will obtain echo outpatient. Will also put a referral in for cardiology due to the pulmonary hypertension. Continue home medications. Will also add and prescribe Norvasc and prednisone. Patient discharged in stable condition. Instructed follow-up with PCP and cardiology in 1 week. Discharge Medications Discharge Medications: Prescriptions: Discharge Plan Discharge Plan Patient Disposition: HOME, SELF-CARE Condition: Stable Health Concerns: Post Hospitalization: new medications and changes needed to prevent readmission or further decline. Pt educated and given instructions on all concerns. Care Plan Goals: Problem: Chest Pain Goals: Chest pain improving/resolved Instructions: Contact your physician or report to the closest Emergency Department if your chest pain returns or worsens. Take medications as prescribed. Follow up with your primary doctor as instructed. Plan of Treatment: Continue with present treatment and follow up plan. Pt is to keep follow up appointment as instructed and take medications as ordered. Prescriptions: New prednisone 10 mg Tablet 40 mg PO QDAY Qty: 5 0RF amlodipine 5 mg Tablet 5 mg PO QDAY Qty: 60 0RF Continued ezetimibe-simvastatin 10-10 mg tablet 1 tab PO QHS 30 Days Qty: 30 3RF losartan 25 mg tablet 25 mg PO QDAY 30 Days Qty: 30 3RF potassium chloride 10 mEq capsule, extended release 20 meq PO BID 30 Days Qty: 120 2RF spironolactone 25 mg tablet 25 mg PO QDAY 30 Days Qty: 30 3RF Orders to Discharge Patient Discharge Orders: Discharge (Routine); Ordered 12/03/24 Ordered By: Isaac Broderick Follow ups/Referrals Follow ups/Referrals: Isaac Broderick MD [Primary Care Provider] - 1 WEEK RIANA LALA MD [STAFF PHYSICIAN] - 1 WEEK Instructions Instructions: Shortness of Breath, Adult, [id number], Pulmonary Hypertension, Nonspecific Chest Pain, Adult, [id number], Syncope, Adult, [id number] Stand Alone Forms: Excuse From Work or School, Find Help Web Site, Post Hospital Follow Up Care
== END 2024-12-03 19:01 | disposition home or self-care (01) ==
LOC: SUPCPDRO → ER 16:25 → MED/SURG 16:25
PROVIDERS: ADMIT Family Medicine; ATTEND Family Medicine